=== PATIENT | female | born 1990 | race Caucasian/White ===

== ENCOUNTER → 2016-07-28 | Emergency (ER) | payer BC ==
[~2016-07-28] VITALS: Ht 167.6 cm; Wt 82.0 kg
[~2016-07-28] MED LIST: CARAFATE1 GM PO; NORCO 5/3251 TABLET PO; ORTHO EVRA PA1 PATCH PO; PEPCID20 MG PO; TOPIRAMATE50 MG PO
[2016-07-28 18:24] LABS: BASOPHIL COUNT 0.1 K/uL (0-0.1); EOSINOPHIL (%) 1.1 % (0-5); EOSINOPHIL COUNT 0.1 K/uL (0-0.3); HEMATOCRIT 41.5 % (36.0-46.0); IMMATURE GRANULOCYTE (%) 0.1 % (0.0-0.7); IMMATURE GRANULOCYTE COUNT 0.1 K/uL; MCH 30.7 PG (29.0-34.0); MCHC 33.3 G/DL (30.0-36.0); MCV 92.2 FL (83-99); MEAN PLAT.VOLUME 9.9 uM^3 (9.5-12.4); MONOCYTE (%) 5.5 % (3-12); MONOCYTE COUNT 0.6 K/uL (0-0.8); NEUTROPHIL (%) 62.9 % (45-76); NEUTROPHIL COUNT 6.3 K/uL (1.8-6.4); PLATELET COUNT 336 K/uL (156-360); RBC DIS.WIDTH-CV 13.4 % (11.8-14.6); RBC DIS.WIDTH-SD 44.4 % (39-53)
[2016-07-28 18:37] LABS: CHLORIDE 104 mEq/L (99-109); SODIUM 141 mEq/L (136-147)
[2016-07-28 18:39] LABS: GLUCOSE 85 mg/dL (70-99)
[2016-07-28 18:39] LABS: ADD MIUA? YES; BILIRUBIN NEGATIVE; BLOOD NEGATIVE; COLOR YELLOW ((YELLOW)); GLUCOSE (STRIP) NEGATIVE; KETONES NEGATIVE; LEUKOCYTES MODERATE; NITRITE NEGATIVE; PROTEIN (STRIP) NEGATIVE; SPECIFIC GRAVITY 1.017 (1.000-1.030); UROBILINOGEN 0.2 MG/DL (0.2-1.0)
[2016-07-28 18:40] LABS: ANION GAP 9 MEQ/L (2-14)
[2016-07-28 18:41] LABS: TOTAL BILIRUBIN 0.1 mg/dL (0.0-1.0)
[2016-07-28 18:42] LABS: ALKALINE PHOSPHATASE 66 IU/L (3-129)
[2016-07-28 18:43] LABS: GFR ESTIMATE (CALCULATED) > 59 mL/min/
[2016-07-28 18:44] LABS: UREA NITROGEN (BUN) 12 mg/dL (9-23)
[2016-07-28 18:46] LABS: LIPASE 31 U/L (1.0-51.0)
[2016-07-28 18:57] LABS: QUANTITATIVE HCG < 4.0 MIU/ML
[2016-07-28 19:16] LABS: BACTERIA RARE /HPF; EPITHELIAL CELLS 2+ /HPF; MUCUS TRACE /LPF; RED BLOOD CELLS 0-5 /HPF (0-5); WHITE BLOOD CELLS 0-5 /HPF (0-5)
[2016-07-28 19:58] VITALS: BP 139/75
== END | disposition home or self-care (01) ==
LOC: EME 17:12
PROVIDERS: Physician Assistant
DX: R10.13 Epigastric pain (principal); K29.70 Gastritis, unspecified, without bleeding; R19.7 Diarrhea, unspecified
CPT/HCPCS: 76705; 80053; 81003; 83690; 84702; 85025; 99281; 99284